=== PATIENT | male | born 1970 | race Caucasian/White ===

== ENCOUNTER 2023-01-21 01:55 | Day surgery (SDC) | payer BC, SELFPAY ==
[2023-01-09 13:39] VITALS: BMI 32.0
[2023-01-21 07:18] VITALS: BMI 33.2
[2023-01-21 07:33] VITALS: BP 199/102; PULSE 77; RESP 20; TEMP 36.4; O2SAT 99
--- NOTE | 2023-01-21 07:33 | SUR.PREOP ---
anesthesia made aware of pts BP. pt denies any symptoms. no new orders. will repeat BP in 10 min.
[2023-01-21] MEDS: LACTATED RINGERS 1,000 ML 150 ML IV CONT (07:43)
[2023-01-21 07:45] VITALS: BP 170/86
--- NOTE | 2023-01-21 08:00 | PM.HPGS ---
History of Present Illness History of Present Illness Consent: Risks, benefits, and alternatives have been discussed and questions answered. Patient agrees to proceed with procedure. Chief complaint: neoplasm screening Narrative: River Gabriel is a 52 year old male Presents for screening colonoscopy. Patient's current weight appetite and bowel movements are normal. Patient denies abdominal pain. He has had no bleeding. Family history is noncontributory. Patient presents today for screening colonoscopy. Review of Systems Review of Systems: Review of systems noncontributory. [facility] Social History Social History Alcohol intake: current Drinks per week: 3 Living arrangements: with family Spiritual care concerns: No Meds Home Medications and Allergies Home Medications Medication Instructions Recorded Confirmed Type lisinopril 40 mg tablet 40 mg PO DAILY 01/09/23 01/09/23 History pantoprazole 40 mg tablet,delayed 40 mg PO DAILY 01/09/23 01/09/23 History release rosuvastatin 10 mg tablet 10 mg PO DAILY 01/09/23 01/09/23 History Allergies Allergy/AdvReac Type Severity Reaction Status Date / Time No Known Allergies Allergy Verified 01/21/23 07:15 Vital Signs Vital Signs - 24 hr 01/21/23 07:33 01/21/23 07:45 Temperature 97.6 F Pulse Rate 77 Respiratory Rate 20 Blood Pressure 199/102 H 170/86 H Pulse Oximetry 99 Oxygen Delivery Room Air Exam Narrative: Physical exam reveals patient to be alert. Vital signs stable. HEENT exam is unremarkable. Patient is anicteric. Lungs are clear to auscultation and percussion. Heart is without murmur or extra sounds. Abdomen bowel sounds present soft nontender with no hepatosplenomegaly. Digital external rectal exam is normal. Assessment and Plan Assessment and plan (1) Encounter for screening colonoscopy: Code(s): Z12.11 - Encounter for screening for malignant neoplasm of colon Status: Acute Assessment and Plan: Patient presents today for screening colonoscopy. Patient appears to be at average risk for colon polyps. Further recommendations may be given after endoscopy.
--- NOTE | 2023-01-21 08:26 | P.PNAN_ITS ---
Anes - Initial Pre Proc Eval Procedure: Operation Date: 01/21/23 08:30 Proposed Procedures p Screening Colonoscopy - Demar Mcnulty MD Date/Time: 01/21/23 08:26 Surgeon: Demar Mcnulty MD Pre Op Diagnosis: neoplasm screening Patient Data Age: 52 Gender: M Height: 1.83 m Weight: 111.1 kg Last Vital Signs Temp 97.6 F 01/21/23 07:33 Pulse 77 01/21/23 07:33 Resp 20 01/21/23 07:33 BP 170/86 H 01/21/23 07:45 Pulse Ox 99 01/21/23 07:33 O2 Del Method Room Air 01/21/23 07:33 Allergies Allergy/AdvReac Type Severity Reaction Status Date / Time No Known Allergies Allergy Verified 01/21/23 07:15 Home Medications Medication Instructions Recorded Confirmed Type lisinopril 40 mg tablet 40 mg PO DAILY 01/09/23 01/09/23 History pantoprazole 40 mg tablet,delayed 40 mg PO DAILY 01/09/23 01/09/23 History release rosuvastatin 10 mg tablet 10 mg PO DAILY 01/09/23 01/09/23 History Patient hx anesthesia problems: none Family hx anesthesia problems: none Results Review: All pre-operative results and documents have been reviewed as part of the pre- operative evaluation. [facility] Social History Social History Alcohol intake: current Drinks per week: 3 Living arrangements: with family Spiritual care concerns: No Anes - Eval Final PreProcedure Day of Procedure 01/21/23 08:26 Patient weight: obese Heart: regular rate and rhythm Lungs: clear to auscultation Airway: Mallampati scale class II Neurological: alert and oriented Last oral intake: >/= 8 hours ASA classification: II Emergent: no Anesthetic plan: proceed Anesthesia type and monitoring: general GIVS and standard monitoring Results Review: All pre-operative results and documents have been reviewed as part of the pre- operative evaluation. Informed Consent: The patient's anesthetic plan and its attendant risks and benefits were discussed with the patient/family/POA. Questions were solicited and answers pro vided to the satisfaction of the patient/family/POA.
[2023-01-21 09:06] VITALS: BP 122/84; PULSE 73; RESP 18; O2SAT 99
[2023-01-21 09:16] VITALS: BP 129/76; PULSE 69; RESP 20; O2SAT 96
[2023-01-21 09:26] VITALS: BP 120/77; PULSE 61; RESP 18; O2SAT 100
== END 2023-01-21 09:31 | disposition home or self-care (01) ==
PROVIDERS: PCP Pediatrics; Visit Provider Internal Medicine Gastroenterology
PROC: 0DJD8ZZ Inspection of Lower Intestinal Tract, Via Natural or Artificial Opening Endoscopic (ICD-10-PCS; CPT 45378; principal; 2023-01-21 08:30)
DX: Z12.11 Encounter for screening for malignant neoplasm of colon (principal); E66.9 Obesity, unspecified; Z68.33 Body mass index [BMI] 33.0-33.9, adult
CPT/HCPCS: 45378; J2704; J7120